=== PATIENT | male | born 1945 | race Caucasian/White ===

== ENCOUNTER → 2023-06-29 06:56 | Outpatient (REF) | payer MEDICARE, OTHER, SELFPAY | LOC: RAD 06:56 | PROVIDERS: ATTENDING PHYSICIAN Specialist; FAMILY PHYSICIAN Internal Medicine | DX: Z96.612 Presence of left artificial shoulder joint (principal); T84.50XD Infection and inflammatory reaction due to unspecified internal joint prosthesis, subsequent encounter | CPT/HCPCS: 73200 ==

== ENCOUNTER → 2023-07-07 13:22 | Outpatient (REF) | payer MEDICARE, OTHER, SELFPAY ==
[2023-07-07 14:09] LABS: % Basophils 0.8 % (0-2); % Immature Granulocytes 0.2 % (0-0.5); % Lymphocytes 26.8 % (20.5-51.1); % Monocytes 13.9 % (1.7-9.3); % Neutrophils 55.3 % (42.2-75.2); Absolute Basophils 0.1 10^3/uL (0-0.2); Absolute Eosinophils 0.2 10^3/uL (0-0.7); Absolute Lymphocytes 1.7 10^3/uL (1.2-3.4); Absolute Monocytes 0.9 10^3/uL (0.1-0.6); Absolute Neutrophils 3.5 10^3/uL (1.4-6.5); Hematocrit 41.1 % (39.0-52.0); Hemoglobin 13.7 g/dL (13.0-18.0); Mean Corp Hgb Conc. 33.3 g/dL (33.0-37.0); Mean Corpuscular Hgb 29.7 pg (27.0-31.0); Mean Corpuscular Volume 89.2 fL (80.0-94.0); Mean Platelet Volume 8.1 fL (7.4-10.4); Nucleated Red Blood Cells % 0 % (-); Platelet Count 278 10^3/uL (130-400); Red Blood Cell Count 4.61 10^6/uL (4.70-6.10); Red Cell Dist. Width 14.8 % (11.5-14.5); White Blood Cell Count 6.3 10^3/uL (4.8-10.8)
[2023-07-07 14:26] LABS: Erythrocyte Sed Rate 19 mm/hour (0-20)
== END ==
LOC: REG 13:22
PROVIDERS: ATTENDING PHYSICIAN Specialist; FAMILY PHYSICIAN Internal Medicine
DX: Z96.612 Presence of left artificial shoulder joint (principal); T84.50XD Infection and inflammatory reaction due to unspecified internal joint prosthesis, subsequent encounter
CPT/HCPCS: 36415; 85025; 85652; 86140

== ENCOUNTER 2023-07-29 06:18 | Inpatient (IN) | payer MEDICARE, OTHER, SELFPAY ==
--- NOTE | 2023-07-14 09:29 | CM ---
Patient is scheduled for a 2nd stage L TSA on 07/29/23. Spoke with patient prior to surgery. Patient had a L TSA (2019) and R THR (2012) at . Reintroduced role of Orthopedic Navigator. Patient reports that he lives with his in a two story home.
Currently he functions independently. He has a sling. He has had [facility] services through [facility]. PCP is Mohini Virk.
Discussed orthopedic program and post surgical plans. Patient will return home when directed by surgeon. Reviewed MD follow up and transition to outpatient therapy. Patient is in agreement with tentative plan and states that his will be home
with him and can assist if needed.
Patient will complete online education.
Plan: Orthopedic Navigator will be involved in the care of patient after surgery and will reassess discharge needs at that time.
[2023-07-19 08:41] LABS: Hematocrit 42.4 % (39.0-52.0); Mean Corpuscular Hgb 29.5 pg (27.0-31.0); Mean Corpuscular Volume 89.3 fL (80.0-94.0); Mean Platelet Volume 8.7 fL (7.4-10.4); Platelet Count 229 10^3/uL (130-400); Red Blood Cell Count 4.75 10^6/uL (4.70-6.10); Red Cell Dist. Width 14.9 % (11.5-14.5)
--- NOTE | 2023-07-19 08:55 | HPS.HSE ---
Family Physician
-
Family Physician: Mohini Virk
Chief Complaint
-
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
History of Present Illness
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 He underwent a rather uncomplicated left reverse total shoulder arthroplasty with Dr. Milton Cantu in April 2020.
Unfortunately, he presented to the emergency room here at [facility] in April 2023 with 2 days of continuous left shoulder pain. He denied any recent activity that resulted in overhead reaching or heavy lifting. His shoulder was visibly
swollen on exam prompting lab evaluation with inflammatory markers being elevated. An aspiration of the left shoulder yielded cloudy fluid and a white blood cell count of nearly 100,000, which was highly suspicious for infectious etiology. He would
undergo a first stage revision of his previous left reverse total shoulder arthroplasty with Dr. Milton Cantu on 05/13/2023. Multiple OR cultures were positive for Cutibacterium acne and he was treated with 6 weeks of IV Ceftriaxone per Infectious
Disease recommendations. He presents back to [facility] for a second stage revision. He has been cleared by Infectious Disease to proceed and thankfully, his inflammatory markers are trending down (CRP 12.3, ESR 19). He denies any current
complaints today such as chest pain, shortness of breath, palpitations, nausea, vomiting, diarrhea, lightheadedness, dizziness, cough, sore throat, or fever.
Medical History
Past Medical History
Past Medical History: Reports Other
Additional Past Medical History:
1. 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 Milton Cantu.
2. Osteoarthritis, status post right total hip arthroplasty, 2012, by Dr. Rios Glass, left reverse total shoulder arthroplasty, 04/2020, by Dr. Milton Cantu, and left total hip arthroplasty, 03/2023, by Dr. Rios Glass.
3. First degree AV block.
4. Cervical fracture secondary to traumatic injury 2016.
5. BPH without LUTS.
6. Basal cell skin carcinoma, status post multiple MOHS.
7. Acute blood loss anemia 04/2023.
8. Obesity, BMI 30.3.
9. Remote history of tobacco abuse.
Past Surgical History: Reports Other
Additional Past Surgical History:
1. First stage revision of left reverse total shoulder arthroplasty, 04/2023, by Dr. Milton Cantu.
2. Left reverse total shoulder arthroplasty, 04/2020, by Dr. Milton Cantu.
3. Right total hip arthroplasty, 2012, by Dr. Rios Glass.
4. Left total hip arthroplasty, 03/2023, by Dr. Rios Glass.
5. Multiple MOHS.
6. Tonsillectomy.
Social History
Tobacco: Former Smoker (He is a former <1 pack per day cigarette smoker who quit tobacco altogether 40+ years ago. )
Alcohol: None
Personal:
Living: Other (He lives with his in a 3 story home. )
Family History
Family History: Not pertinent
Allergies / Home Medications
Allergy/Medication List:
Home medications: Aspirin 325 mg p.o. daily.
Allergies: No known drug allergies.
Review of Systems
-
A 12 point ROS was completed and negative except as noted: Yes
Physical Exam
Vital Signs
Blood pressure 148/88. Heart rate 70. Respirations 18. Pulse ox 97% on room air.
Height 5 feet, 9.75 inches, weight 95.1 kg, BMI 30.3.
Physical Exam
General: Well Developed, Well Nourished and No Apparent Distress
HEENT: NormoCephalic, Moist mucous membranes, Atraumatic and PERRLA
Respiratory: Clear
Cardiac: Regular Rhythm
GI: Soft, Non Tender and Non Distended
Musculoskeletal: Other (Left shoulder: well healed incisions. Limited range of motion. No erythema, no warmth. )
Skin: Warm and Dry
Neuro: AO x 3 and Cranial Nerves Intact
Laboratory Results
-
07/19/23 08:07
DIAGNOSTIC STUDIES as of 07/19/2023: Sodium 136. Potassium 4.6. BUN 29. Creatinine 0.8. Glucose 87. Hemoglobin A1c 5.5. Calcium 9.3. AST 27. ALT 15. Albumin 4.2. Type and screen A positive. MRSA screen negative.
DIAGNOSTIC STUDIES as of 07/07/2023: ESR 19. CRP 12.3.
EKG 07/19/2023: Sinus rhythm with first degree AV block. When compared to the previous EKG of 03/15/2023, no significant change was found.
Impression/Plan
-
CLEARANCES:
1. Primary medical, LANDRY Maria, cleared.
Primary medical phone number: [phone].
2. Dental waived.
IMPRESSION/PLAN:
1. 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 Milton Cantu on 07/29/2023. The benefits and risks of the procedure have been
explained to the patient. The patient understands these risks and wishes to proceed.
2. DVT prophylaxis: Aspirin.
3. Pain management: In preparation for his surgery, he has already been prescribed Oxycodone 5 mg, 1-2 tablets p.o. every 6 hours as needed for moderate-severe post-operative pain. He will also utilize Acetaminophen 1000 mg p.o. every 6 hours and
Celebrex 200 mg p.o. daily for pain control.
Patient's phone number: [phone].
Patient's contact (Cathi Panda - Spouse): [phone].
[2023-07-19 08:58] LABS: ALT (SGPT) 15 U/L (0-50); AST (SGOT) 27 U/L (17-59); Albumin 4.2 g/dl (3.5-5.0); Alkaline Phosphatase 103 U/L (38-126); Blood Urea Nitrogen 29 mg/dl (9-20); Calcium 9.3 mg/dl (8.4-10.2); Carbon Dioxide 23 mmol/L (22-30); Chloride 109 mmol/L (98-107); Glucose 87 mg/dl (70-99); Potassium 4.6 mmol/L (3.5-5.1); Sodium 136 mmol/L (135-145); Total Bilirubin 0.5 mg/dl (0.2-1.3); Total Protein 6.6 g/dl (6.3-8.2); eGFR > 60.00
[2023-07-19 12:13] LABS: Glycohemoglobin (HgbA1c) 5.5 % (4.0-5.6)
[2023-07-19 14:11] VITALS: BMI 30.3
[2023-07-19 14:51] VITALS: BMI 30.3
[2023-07-29] VITALS (13 sets, daily range): BP systolic 110–138; BP diastolic 68–82
[2023-07-29] MEDS: TYLENOL 1000 MG PO (08:20)
[2023-07-29] MEDS: NORMOSOL-R 1000 IV (08:21)
[2023-07-29] MEDS: CELEBREX 200 MG PO (08:21)
--- NOTE | 2023-07-29 10:20 | CM ---
Reviewed chart. Patient is here for planned 2nd stage Revision L TSA. The discharge plan is for patient to return home at discharge. He will have support from his when he goes home. Patient will do a home exercise program and does not need VN
services; he is aware and in agreement.
Patient will use [facility] pharmacy for discharge prescriptions.
No needs currently identified.
[2023-07-29] MEDS: ANCEF 5 IV (15:30)
== END 2023-07-29 16:30 | disposition home or self-care (01) | DRG 483 ==
LOC: AMOS 06:18
PROVIDERS: ADMITTING PHYSICIAN Specialist; FAMILY PHYSICIAN Internal Medicine
PROC: 0RRK0JZ Replacement of Left Shoulder Joint with Synthetic Substitute, Open Approach (ICD-10-PCS; 2023-07-29)
PROC: 0RPK08Z Removal of Spacer from Left Shoulder Joint, Open Approach (ICD-10-PCS; 2023-07-29)
PROC: 0HBCXZZ Excision of Left Upper Arm Skin, External Approach (ICD-10-PCS; 2023-07-29)
DX: M19.012 Primary osteoarthritis, left shoulder (principal); D62 Acute posthemorrhagic anemia; L90.5 Scar conditions and fibrosis of skin; M25.512 Pain in left shoulder; T84.59XD Infection and inflammatory reaction due to other internal joint prosthesis, subsequent encounter; Y83.8 Other surgical procedures as the cause of abnormal reaction of the patient, or of later complication, without mention of misadventure at the time of the procedure; E66.9 Obesity, unspecified; I44.0 Atrioventricular block, first degree; N40.0 Benign prostatic hyperplasia without lower urinary tract symptoms; Z96.643 Presence of artificial hip joint, bilateral; Z96.612 Presence of left artificial shoulder joint; Z85.828 Personal history of other malignant neoplasm of skin; Z68.30 Body mass index [BMI] 30.0-30.9, adult; Z87.891 Personal history of nicotine dependence; Z79.82 Long term (current) use of aspirin
CPT/HCPCS: 36415; 73020; 80053; 83036; 85027; 86850; 86900; 86901; 87070; 87075; 87205; 93005; C1713; C1776

== ENCOUNTER → 2023-09-23 15:12 | Outpatient (REF) | payer MEDICARE, OTHER, SELFPAY | LOC: RAD 15:12 | PROVIDERS: ATTENDING PHYSICIAN Physician Assistant Medical; FAMILY PHYSICIAN Internal Medicine | DX: M79.662 Pain in left lower leg (principal) | CPT/HCPCS: 93971 ==